=== PATIENT | male | born 1955 | race Caucasian/White ===

== ENCOUNTER 2016-08-21 22:02 | Inpatient (IN) | payer OTHER ==
[~2016-08-21] VITALS: Ht 183.5 cm; Wt 109.5 kg
--- NOTE | ~2016-08-21 | PR ---
[place], [place] PROGRESS NOTE NAME: KELSEY MULLER UNIT #: [id number] ROOM: 317 DOCTOR: BALTA BHAT BIRTHDATE: [birth year] DOS: 08/30/2016 CHIEF COMPLAINT: The patient was nonverbal. SUMMARY OF VISIT: The patient was interviewed in his room where he was lying down in bed. I asked him multiple questions. He would just stare at me refused to answer. No voiced complaints from nursing other than the fact that yesterday, Dr. Stevenson increased his Vraylar and added lactulose every day for his constipation and then when the hospitalist rounded they added mag citrate so needless to say the patient is going to the bathroom. MENTAL STATUS: He is alert and oriented to person; I think place and approximate time. At this point, I think he is just being behavioral and there are no overt signs of auditory or visual hallucinations, delusions and paranoia. Some of the things that he is doing as far as being nonverbal or sticking his tongue out, does not occur when he does not know that we are watching him and then he acts this way sometimes when his mother is around or myself or Dr. Stevenson are in the room. We will continue to monitor to make sure this is entry of psychosis, but I feared that it is a little bit more behavioral than psychotic. PLAN: I am going to keep his medications where they are right now in particular his psych meds the Vraylar at 6 mg, he is getting vitamin D get his GI issues under control and then we will go from there. BRIAN BHAT CNP CM:PNTRANS [id number] BALTA BHAT 08/30/16 1021 interface
--- NOTE | ~2016-08-21 | PR ---
[place], [place] PROGRESS NOTE NAME: KELSEY MULLER UNIT #: [id number] ROOM: 317 DOCTOR: BALTA BHAT BIRTHDATE: [birth year] DOS: 08/25/2016 CHIEF COMPLAINT: The patient just stuck his tongue out and kept it out. SUMMARY OF VISIT: He was assessed in the hallway outside his room. He would engage in conversation, but was much more slow in responses to my questions. His tongue was sticking out. I was concerned that it was tardive dyskinesia. It was not thrusting out, it was not twitching, it was just sticking out. When I would ask any questions, he would pull it back in. I did ask him to please hold his tongue in his mouth for a period of time while I was assessing him and he was able to do it. I asked him if he felt that he was having a side effect of the medications. His chart states that he is allergic to all antipsychotics. We only have him on Vraylar and I did increase his Vraylar yesterday and he said "I don't know." He also stated that he did not sleep last night; however, nursing notes and checks state that he did sleep throughout the night. MENTAL STATUS: He is alert and oriented to person, place, approximate time. Mood is trending towards euthymic. Affect is appropriate. There are no overt signs of auditory or visual hallucinations, delusions, or paranoia. He is just a little off today. I want to keep an eye on him. PLAN: I will go ahead and decrease the Vraylar back to 1.5 mg. So, that is the only change he has had in the last 24 hours. I did start him on vitamin D pill for his deficiency. Let me see how he does over the next 24 hours and we can go from there. BRIAN BHAT CNP CM:PNTRANS [id number] BALTA BHAT 08/25/16 1019 interface
--- NOTE | ~2016-08-21 | PR ---
[place], [place] PROGRESS NOTE NAME: KELSEY MULLER UNIT #: [id number] ROOM: 317 DOCTOR: VISH BETH MD BIRTHDATE: [birth year] DOS: 08/27/2016 CHIEF COMPLAINT: "I don't know if I want that sleeping pill." SUMMARY OF THE VISIT: The patient was interviewed as he sat in the quiet room. Nurses report, he has been episodically noncompliant with medicines more often than not refusing to take them. I did confront him on his behavior and did let him know that if he did not comply with his medicine that we would make strong recommendation to his mother who is his DPOA that he not return home and instead be placed into a long-term care facility or long-term care mental health unit. MENTAL STATUS: He is alert and oriented. He is somewhat guarded and suspicious. He refused to answer some of my questions, rather was more focused on medication and whether they were sleeping pills or not. ASSESSMENT AND PLAN: At this point, I am going to simplify his regimen. I will get rid of the Benadryl and increase is Vraylar from 1.5 mg at bedtime to 3 mg at bedtime with a target dose of 6 mg at bedtime in mind. I will renew the Ativan so it is their case he requires it. At this point, we will take a very confirm approach in order to get him to be compliant with his medicine. VISH BETH MD CM:PNTRANS 0919 1031 VISH BETH MD 08/27/16 1031 interface
--- NOTE | ~2016-08-21 | WRIGHTHP ---
[place], [place] PATIENT HISTORY AND PHYSICAL EXAM NAME: KELSEY MULLER UNIT #: [id number] ROOM: 317 DOCTOR: VISH BETH MD BIRTHDATE: [birth year] DOS: 08/22/2016 CHIEF COMPLAINT: "My house was full of fumes and my mom is not competent to make decisions." HISTORY OF PRESENT ILLNESS: This is a 60-year-old white male who is well known to me from previous admissions to the [facility] as well as my outpatient practice. He initially presented to the Emergency Room at [facility] complaining that his house was full of toxic poisonous fumes. This has just been happening over the last week, but he has noticed that seems to be intensifying prior to this admission. The patient has a lengthy history of schizoaffective disorder and a lengthy history of medication noncompliance. When he was at [facility], he was found to be grossly psychotic and very agitated requiring p.r.n. intervention. He was eventually pink slipped here then for further treatment and evaluation. PAST MEDICAL HISTORY: Remarkable for hypertension, hyperlipidemia, GERD, obesity and the history of schizoaffective disorder. MENTAL STATUS: The patient is alert and oriented to person, place, and time. Mood is very labile. He is very anxious and hyper. He tends to jump from topic to topic and is fixated on the delusional belief that his home is filled with toxic fumes from a tomcat. He is fearful that his mom will be hurt by this as well and wants us to be able to reach out to her. He reports multiple allergies to antipsychotic medications as well as most psychotropics. There is no charo or hypomania noted. Memory for the most part is relatively well intact. DIAGNOSIS: Schizoaffective disorder. PLAN: I will go ahead and start him on Vraylar 1.5 mg at bedtime with a plan to titrate this rapidly up to its therapeutic level. I will use Halcion p.r.n. for sleep aid. We will try to engage him at best in individual and saleem milieu activity. I will have social economist reach out to his mother just to verify her safety, given his concerns. He will return home then when psychiatrically stable. [place], [place] PATIENT HISTORY AND PHYSICAL EXAM NAME: KELSEY MULLER UNIT #: [id number] ROOM: 317 DOCTOR: VISH BETH MD BIRTHDATE: [birth year] VISH BETH MD CM:HISPHYS:PATIENT HISTORY AND PHYSICAL EXAMINATION 1005 1025 VISH BETH MD 08/22/16 1026 interface
--- NOTE | ~2016-08-21 | DS ---
[place], [place] DISCHARGE SUMMARY NAME: KELSEY MULLER UNIT #: [id number] ROOM: 317 DOCTOR: VISH BETH MD BIRTHDATE: [birth year] DOS: 08/31/2016 CHIEF COMPLAINT: "My house was full of fumes and my mom is not competent to make decisions" HISTORY OF PRESENT ILLNESS: This is a 60-year-old white male who is well known to me from a previous admission here to the [facility] as well as from my outpatient practice. The patient initially presented to the Emergency Room at [facility] complaining that his house was full of toxic poisonous fumes. The patient stated that this has been happening over the last week and that his distress has been intensifying over this period of time. The patient has a lengthy history of schizoaffective disorder as well as a lengthy history of medication noncompliance. While at [facility], he was found to be grossly psychotic and very agitated in the Emergency Room, requiring intramuscular p.r.n. intervention in order to keep him safe and others safe. Because of his severe psychosis and his risk of harm to self and others, the patient was sent here on an involuntary basis for further evaluation and treatment. PAST MEDICAL HISTORY: Remarkable for hypertension, hyperlipidemia, GERD, obesity, and a lengthy history of the schizoaffective disorder. SUMMARY OF HOSPITAL COURSE: The patient was admitted to the unit where he was started on Vraylar 1.5 mg at bedtime. At first, he did not want to take the medicine, but then after some convincing, he was willing to take it. He reported multiple sensitivities to antipsychotics. He did seem to tolerate the Vraylar well. There was no true EPS, tardive dyskinesia, or other side effects. Of note, the patient did tend to ____ tardive dyskinesia when his mother visited and would often be seen protruding his tongue out. When his mother left or when staff was apparently not looking, the patient resumed his normal behavior. With the Vraylar, the patient did seem to have his overall mood improve. He became much less labile and much more redirectable. He was much more forward thinking and was planning for the future. He slept well with the Vraylar. There was no overt somnolence in the morning. Efforts were made to keep his medication regimen fairly simple due to the fact that he did tend to be easily overwhelmed with multiple medications and quickly became noncompliant with them. The Vraylar was rapidly titrated over his stay from the 1.5 mg initiation dose to the target dose of 6 mg at bedtime. As mentioned previously, with the Vraylar at the 6 mg dose, he did seem to sleep better, he did seem to have his psychosis clear, he had improved sufficiently to return back home to be with his mother on 08/31/2016. MENTAL STATUS AT DISCHARGE: The patient was alert and oriented to person, place, and time. Mood in general was more euthymic. Affect was much more appropriate. There was no symptom suggestive of charo or hypomania. He was still guarded and suspicious, but this is baseline and his residual delusions persisted. Memory was relatively well intact. FINAL DIAGNOSIS AT DISCHARGE: Schizoaffective disorder. [place], [place] DISCHARGE SUMMARY NAME: KELSEY MULLER UNIT #: [id number] ROOM: [facility] DOCTOR: VISH BETH MD BIRTHDATE: [birth year] PLAN: He will return [facility] All of his prescriptions have been E-scribed to [facility]. VISH BETH MD CM:DMITRY [phone] VISH BETH MD 08/31/16 0843 interface
--- NOTE | ~2016-08-21 | PR ---
[place], [place] PROGRESS NOTE NAME: KELSEY MULLER UNIT #: [id number] ROOM: 317 DOCTOR: BALTA BHAT BIRTHDATE: [birth year] DOS: 08/24/2016 CHIEF COMPLAINT: "Good morning." SUMMARY OF VISIT: The patient was assessed in the dining room where he was sitting in the recliner. He engaged readily in conversation, pleasant, good eye contact. States that he slept very well last night, feels like he is getting close to his baseline. MENTAL STATUS: He is alert and oriented to person, place, approximate to time. Mood definitely trending towards euthymic. Affect is appropriate. No overt signs of auditory or visual hallucinations, delusions, paranoia, charo or hypomania. PLAN: He was found to be severely vitamin D deficient I will start him on some vitamin D 50,000 international units every week. We will continue with the Vraylar which I increased last night, which seemed to help and we will see how he does over the next 24 hours to see if I want to increase a little bit more. We will continue to try to engage in individual and saleem milieu therapy with the plan to discharge once stable. BRIAN BHAT CNP CM:PNTRANS 0855 BALTA BHAT 08/24/16 0932 interface
--- NOTE | ~2016-08-21 | PR ---
[place], [place] PROGRESS NOTE NAME: KELSEY MULLER UNIT #: [id number] ROOM: 317 DOCTOR: BALTA BHAT BIRTHDATE: [birth year] DOS: 08/23/2016 CHIEF COMPLAINT: "Good morning." SUMMARY OF VISIT: The patient was assessed in the dining room where he had finished breakfast. He engaged readily in conversation. Only complaint from nursing is that he does not really want to take a lot of p.r.n. medications even when he becomes anxious. He did take Vraylar without any complaints. He states that he slept really good last night from 11:00-3:00 a.m., which is good for him. He was happy with that result. I did talk to him about the options of adding Vistaril if he needed it. He really did not want any kind of sleep aid at this time. PLAN: We will continue with the Vraylar actually, I am going to go ahead and bump up the Vraylar to 3 mg at bedtime, titrate it rapidly to its therapeutic level. We are using Halcion p.r.n. if he needs it. We will continue to try to engage in individual and saleem milieu therapy with the plan to discharge once stable. BRIAN BHAT CNP CM:PNTRANS 0901 1032 BALTA BHAT 08/23/16 1033 interface
--- NOTE | ~2016-08-21 | PR ---
[place], [place] PROGRESS NOTE NAME: KELSEY MULLER UNIT #: [id number] ROOM: 317 DOCTOR: BALTA BHAT BRIAN BIRTHDATE: [birth year] DOS: 08/26/2016 CHIEF COMPLAINT: The patient was nonverbal today. SUMMARY OF VISIT: The patient was assessed in the conference room across in the nurses' station. It should be noted when I first arrived on the floor, he was in there. I came up from behind him in the hallway. He was sitting there fine, just resting. His tongue was not out. When he knew it was his time to be assessed and I entered the room, I noticed that his tongue was sticking out. He made eye contact, refused to talk to me. Nursing also noted they monitored him all day yesterday and when he was unaware of their observation, he went on his normal way but when they were engaging him, that is when the tongue came out. He does have the twitching or sucking of the mouth that he has had since he has been here. He has had it for 5 years. He states that previously, he told us that was from previous antipsychotics that he has been on. So, I do not know if the tongue thing is kind of behavioral, that he wants to make sure that we do not give him any psychotics. When I saw the tongue thing yesterday, I did decrease the Vraylar and that is the only thing that has changed since this started, so I decreased it back down to 1.5 mg every day. He did tell the nurse yesterday that Benadryl helped him with that. Benadryl is usually I may not may go to, but I am going to go ahead and order a low-dose Benadryl and see if this will help. Again, patient will refuse any psychotics. I am not going to bump the Vraylar back up today. I am going to keep it at the 1.5 mg. I will get some Benadryl in him and see how he responds over the next couple of days. Nursing notes that he is responding to some type of internal stimuli or voice that they auditorily hear him respond to, something that he is hearing and he did tell 1 of the nurses yesterday that prior to coming here, he was feeling suicidal. MENTAL STATUS EXAMINATION: He is alert and oriented to person and place. I am not sure about time. Mood still it is euthymic, but he is having more moments of quiet than he did yesterday and the day before. Affect can be inappropriate. There are some types of hallucinations going on. I do not know if the tongue thing is a delusion. If it is fear that he is getting some type of tardive dyskinesia or side effect of medications that he has had in the past. He is definitely very behavioral at times, but other times there is still some type of psychiatric thing going on with the hallucinations and such. PLAN: Again, I am leaving the Vraylar where it is at. I decreased it yesterday after the sticking out of the tongue. I am going to keep it at 1.5 mg every day. I will give him the Benadryl 25 mg b.i.d. p.r.n. We will try that and see how he does over the next 24 hours. He did note that he did not feel that he should eat in the dining room around all those sick people and I think he meant physically sick. There are a couple of people on the floor with upper respiratory issues, rhonchi and coughing and I think that is part of the problem. So, we let him eat in the quiet room across in the nurses' station. He ate his tray, his full plate and was fine. So, I think he does not want to be around people, who are physically having colds, allergies, etc. So, we will try to engage in individual and saleem milieu therapy, let us see how the Benadryl does, it may work and then we will go from there. [place], [place] PROGRESS NOTE NAME: KELSEY MULLER UNIT #: [id number] ROOM: 317 DOCTOR: BALTA BHAT BIRTHDATE: [birth year] BRINA BHAT CNP CM:PNTRANS 56 BALTA BHAT 08/26/161857 interface
[~2016-08-21 22:02] MED LIST: AMOXICILLIN500 MG PO; ATIVAN PO; BENADRYL25 MG PO; COGENTIN1 MG PO; Depakote500 MG PO; FLEXERIL10 MG PO; FLOMAX0.4 MG PO; HYDR12.5C PO; HYDROCHLOROTHIA25 MG PO; INVEGA SUSTENNA39 MG; LATUDA PO; MOTRIN800 MG PO; RESTORIL7.5 MG PO; XANAX0.25 MG PO; ZETIA10 MG PO
[2016-08-21 23:29] VITALS: BP 148/90
[2016-08-21] MEDS ORDERED: HYDROXYZINE HCL25 M1 PO (23:29)
[2016-08-21] MEDS ORDERED: FLUPHENAZINE HCL1 MG PO (23:29)
[2016-08-21] MEDS ORDERED: THORAZINE10 MG PO (23:31)
[2016-08-21] MEDS ORDERED: SIMVASTATIN20 MG PO (23:31)
[2016-08-21] MEDS ORDERED: DOC-Q-LACE100 MG PO (23:32)
[2016-08-22] MEDS ORDERED: OMEPRAZOLE20 M2 PO (00:39)
[2016-08-22 07:12] LABS: BASO % 0.5 % (0.0-1.0); EOS # 0.2 10*3/uL (0.0-0.4); EOS % 2.4 % (1.0-4.0); HEMATOCRIT 53.1 % (42.0-52.0); HEMOGLOBIN 18.1 g/dl (14.0-18.0); LYMPH # 2.3 10*3/uL (1.3-4.4); LYMPH % 29.9 % (27.0-41.0); MEAN CORPUSCULAR HGB 30.7 pg (27.0-31.0); MEAN CORPUSCULAR HGB CONC 34.1 g/dl (33.0-37.0); MEAN PLATELET VOLUME 9.7 fl (9.6-12.3); MONO # 0.7 10*3/uL (0.1-1.0); MONO % 8.8 % (3.0-9.0); NEUT # 4.5 10*3/uL (2.3-7.9); NEUT % 58.1 % (47.0-73.0); PLATELET COUNT AUTOMATED 291 10*3/uL (130-400); RED CELL DISTRI WIDTH 12.1 % (0-14.5); WHITE BLOOD COUNT 7.8 10*3/uL (4.8-10.8)
[2016-08-22 07:49] LABS: BUN 16 mg/dl (7-24); CARBON DIOXIDE 27 mmol/L (21-32); CHLORIDE 107 mmol/L (98-107); CHOLESTEROL 166 mg/dL (<200); EST GLOM FILT AFRICAN AMERICAN > 60 ml/min; GLUCOSE 131 mg/dL (65-99); HDL CHOLESTEROL 57 mg/dl (40-60); LDL CHOLESTEROL 82 mg/dL (9-159); POTASSIUM 3.8 mmol/L (3.5-5.1); SODIUM 143 mmol/L (136-145); TRIGLYCERIDES 137 mg/dl (<150); VLDL CHOLESTEROL 27 mg/dL (6-40)
[2016-08-22 08:18] VITALS: BP 123/83
[2016-08-22] MEDS ORDERED: FISH OIL500 M2 PO (17:38)
[2016-08-22] MEDS ORDERED: DAILY VALUE1 EACH PO (17:39)
[2016-08-22] MEDS ORDERED: VITAMIN D32000 UNIT PO (17:40)
[2016-08-22 20:13] VITALS: BP 128/81
[2016-08-23 08:10] VITALS: BP 117/74
[2016-08-23 09:44] LABS: VITAMIN D, 25-HYDROXY 26.6 ng/mL (30-100)
[2016-08-23 20:40] VITALS: BP 142/92
[2016-08-24 08:56] VITALS: BP 128/79
[2016-08-24 20:40] VITALS: BP 121/72
[2016-08-25 07:55] VITALS: BP 117/81
[2016-08-25 20:12] VITALS: BP 129/92
[2016-08-26 08:34] VITALS: BP 120/65
[2016-08-27 08:13] VITALS: BP 132/82
[2016-08-27 20:00] VITALS: BP 118/64
[2016-08-28 08:24] VITALS: BP 124/75
[2016-08-28 20:50] VITALS: BP 131/82
[2016-08-29 08:34] VITALS: BP 145/76
[2016-08-29 20:15] VITALS: BP 106/62
[2016-08-30 08:12] VITALS: BP 107/64
[2016-08-30 19:00] VITALS: BP 129/83
[2016-08-31] MEDS ORDERED: VRAYLAR6 MG PO (07:46)
[2016-08-31] MEDS ORDERED: VITAMIN D50000 I3 PO (07:46)
[2016-08-31] MEDS ORDERED: LACTULOSE20 GM/30 M PO (07:46)
[2016-08-31 08:16] VITALS: BP 121/68
[2016-08-31] MEDS ORDERED: AMLODIPINE BESYL5 MG PO (12:16)
== END 2016-08-31 13:00 | disposition home or self-care (01) | DRG 885 ==
LOC: 3N 22:02
PROVIDERS: Psychiatry & Neurology Psychiatry
DX: F25.9 Schizoaffective disorder, unspecified (principal); E66.01 Morbid (severe) obesity due to excess calories; I10 Essential (primary) hypertension; E78.5 Hyperlipidemia, unspecified; K21.9 Gastro-esophageal reflux disease without esophagitis; R00.0 Tachycardia, unspecified; Z68.32 Body mass index [BMI] 32.0-32.9, adult; Z87.891 Personal history of nicotine dependence; Z88.8 Allergy status to other drugs, medicaments and biological substances; Z82.49 Family history of ischemic heart disease and other diseases of the circulatory system